=== PATIENT | male | born 1995 | race African-American/Black ===

== ENCOUNTER 2018-10-25 21:51 | Emergency (ER) | payer OTHER ==
[~2018-10-25] VITALS: Ht 170.2 cm; Wt 166.0 kg
[2018-10-25 21:52] VITALS: Ht 170.2 cm; Wt 166.0 kg
[2018-10-26] MEDS ORDERED: IBUPROFEN 600 MG TAB PO ONE
[2018-10-26] MEDS ORDERED: NAPR-985 PO (01:45)
--- NOTE | 2018-10-26 01:53 | ERD ---
ER Documentation Chief Complaint Chief Complaint RIGHT ANKLE INJ X3DAYS AGO; [facility]; WAS SEEN AT ANOTHER HOSP HPI This is a 23-year-old male patient presents emergency room with complaint of right ankle pain x3 days. States he was seen at [facility] 3 days ago after falling down 7-8 steps. States at that hospital he was diagnosed with "injured foot" and was placed in splint which has since broken and patient is here to request new splint. Patient ambulating with slow steady gait. States the tramadol that he was prescribed is not working for his pain. Denies chronic medical problems. ROS All systems reviewed and are negative except as per history of present illness. Medications Home Meds Active Scripts Naproxen* (Naprosyn*) 500 Mg Tablet, 500 MG PO BID PRN for PAIN AND/OR INFLAMMATION, #30 TAB Prov:DELTA KHALIL NP 10/26/18 PMhx/Soc Medical and Surgical Hx: pt denies Medical Hx History of Surgery: Yes (inguinal hernia ) Anesthesia Reaction: No Hx Neurological Disorder: No Hx Respiratory Disorders: No Hx Cardiac Disorders: No Hx Psychiatric Problems: No Hx Miscellaneous Medical Probl: No Hx Alcohol Use: No Hx Substance Use: No Hx Tobacco Use: No Smoking Status: Never smoker FmHx Family History: No diabetes, No coronary disease, No other Physical Exam Vitals Vital Signs Date Temp Pulse Resp B/P (MAP) Pulse Ox O2 O2 Flow FiO2 Time Delivery Rate 10/25/18 97.2 88 19 158/72 99 21:52 (100) Physical Exam Const: No acute distress Head: Atraumatic Eyes: Normal Conjunctiva, PERRL ENT: Normal External Ears, Nose and Mouth. Neck: Full range of motion. No meningismus. No no lymphadenopathy Resp: Clear to auscultation bilaterally Cardio: Regular rate and rhythm, no murmurs Abd: Soft, non tender, non distended. Normal bowel sounds Ext: No cyanosis, or edema. RLE: 5/5 strength, cap refill < 2 sec, sensation intact, no point tenderness of metatarsals or toes, no tenderness to medial malleolus, +tenderness to lateral malleolus, no swelling, no redness, no abrasions, no bruising. Patient feet are dirty and unkempt. Neur: Awake and alert Psych: Normal Mood and Affect Results 24 hrs Current Medications Medications Dose Sig/Alphonso Start Time Status Last (Trade) Ordered Route PRN Stop Time Admin Dose Reason Admin Ibuprofen 600 mg ONCE ONCE 10/26/18 DC 10/25/18 (Motrin) PO 00:00 23:58 10/26/18 00:01 Procedures/MDM Is a 23-year-old male patient presents emergency room with complaint of right ankle pain. ED COURSE: The patient was stable throughout ED course. I DIAGNOSTIC IMAGING: Read by radiologist. Moderate soft tissue swelling over the lateral right ankle without evidence of underlying fracture PROCEDURES: Application of walking boot MEDICATIONS GIVEN: Ibuprofen Patient tolerated medication well with no adverse reactions. Patient reported improvement in pain. MDM: Splint Assessment: Neurovascularly intact post splint placement with good fit. She was provided with instructions on self-care and provided with referrals for follow-up. Patient's extremity symptoms have stabilized while they have been evaluated in the department and are appropriate for outpatient follow up. No evidence of compartment syndrome, neurologic injury, vascular injury, open joint, open fracture, tendon laceration, or foreign body. DISPOSITION: The patient has been discharge home to follow-up with community physician. Departure Diagnosis: Primary Impression: Ankle sprain Condition: Stable Patient Instructions: R.I.C.E., Treating Ankle Sprains, Self-Care for Strains and Sprains Referrals: [facility] YOU HAVE RECEIVED A MEDICAL SCREENING EXAM AND THE RESULTS INDICATE THAT YOU DO NOT HAVE A CONDITION THAT REQUIRES URGENT TREATMENT IN THE EMERGENCY DEPARTMENT. FURTHER EVALUATION AND TREATMENT OF YOUR CONDITION CAN WAIT UNTIL YOU ARE SEEN IN YOUR DOCTORS OFFICE WITHIN THE NEXT 1-2 DAYS. IT IS YOUR RESPONSIBILITY TO MAKE AN APPOINTMENT FOR FOLOW-UP CARE. IF YOU HAVE A PRIMARY DOCTOR --you should call your primary doctor and schedule an appointment IF YOU DO NOT HAVE A PRIMARY DOCTOR YOU CAN CALL OUR PHYSICIAN REFERRAL HOTLINE AT IF YOU CAN NOT AFFORD TO SEE A PHYSICIAN YOU CAN CHOSE FROM THE FOLLOWING [facility] [address] [facility] [address] [facility] [address] [facility] [address] [facility] [address] [facility]. [facility] [address] Additional Instructions: Thank you very much for allowing us to participate in your care. Your health and safety is our top priority at [facility]. Call your primary care doctor TOMORROW for an appointment during the next 2-4 days and bring all the information and medications prescribed. Have prescriptions filled and follow precisely the directions on the label. If the symptoms get worse and your provider is unavailable, return to the Emergency Department immediately. DELTA KHALIL NP October 26, 2018 01:53
[2018-10-26 02:11] VITALS: BP 171/90; PULSE 65; RESP 22
== END 2018-10-26 02:13 | disposition home or self-care (01) ==
LOC: FTE 21:51
DX: S93.401A Sprain of unspecified ligament of right ankle, initial encounter (principal); W10.8XXA Fall (on) (from) other stairs and steps, initial encounter; Y92.9 Unspecified place or not applicable
CPT/HCPCS: 73610; Z7502; Z7610